=== PATIENT | female | born 1965 | race African-American/Black ===

== ENCOUNTER 2022-08-05 05:08 | Emergency (ER) | payer OTHER ==
[2022-08-05 05:52] VITALS: BP 131/88; PULSE 78; RESP 15; TEMP 98.1; BMI 33.1
[2022-08-05] MEDS ORDERED: KETOROLAC TROMETHAMINE 30 MG/1 ML VIAL IM ONE (06:01)
[2022-08-05] MEDS ORDERED: KETOROLAC TROMETHAMINE 30 MG/1 ML VIAL ONE (06:34)
== END 2022-08-05 08:00 | disposition home or self-care (01) ==
LOC: JER 05:08
PROC: 3E0233Z Introduction of Anti-inflammatory into Muscle, Percutaneous Approach (ICD-10-PCS; principal; 2022-08-05)
DX: K08.89 Other specified disorders of teeth and supporting structures (principal)
CPT/HCPCS: 96372; 99284-25

== ENCOUNTER 2022-11-16 11:55 | Emergency (ER) | payer OTHER ==
[2022-11-16 12:10] VITALS: BP 133/87; PULSE 99; RESP 18; TEMP 97.8; BMI 32.8
== END 2022-11-16 13:13 | disposition home or self-care (01) ==
LOC: JERFT 11:55
DX: K08.89 Other specified disorders of teeth and supporting structures (principal)
CPT/HCPCS: 99283-25

== ENCOUNTER 2024-02-20 12:58 | Emergency (ER) | payer OTHER ==
[2024-02-20 13:11] VITALS: BP 117/75; PULSE 86; RESP 18; TEMP 98.7; BMI 30.4
[2024-02-20] MEDS ORDERED: IBUPROFEN 600 MG TABLET (FP) PO ONE (13:44)
[2024-02-20] MEDS ORDERED: ACETAMINOPHEN 500 MG TABLET (FP) ONE (13:44)
[2024-02-20] MEDS: ACETAMINOPHEN 500 MG TABLET (FP) PO ONE (13:46)
[2024-02-20] MEDS: IBUPROFEN 600 MG TABLET (FP) PO ONE (13:46)
== END 2024-02-20 16:05 | disposition home or self-care (01) ==
LOC: JERFT 12:58
DX: M25.461 Effusion, right knee (principal); M17.11 Unilateral primary osteoarthritis, right knee; M25.561 Pain in right knee
CPT/HCPCS: 73562-TC-RT-FY; 99283-25